=== PATIENT | male | born 1960 | race Caucasian/White ===

== ENCOUNTER 2019-03-31 10:29 | Emergency (ER) | payer OTHER, SELFPAY ==
[2019-03-31 10:30] VITALS: BP 158/103; PULSE 80; RESP 16; TEMP 36.9; O2SAT 99; BMI 29.2
--- NOTE | 2019-03-31 12:12 | ED.VIS.GEN ---
History of Present Illness Chief Complaint: Rash Detail of Chief Complaint: Rash face, upper extremity and genitals Informant: Patient Onset: Days Context: Sudden Onset Timing: Continuous Quality: Pruritic rash Location: Previously mentioned Current Severity: Mild Maximum Severity: Moderate Worsened by: Itching Relieved by: Nothing Associated Symptoms: Drainage right and left ear with pain Narrative: Patient is a 58-year-old male presents with pruritic rash preauricular, face bilaterally, upper extremities and genitals. He also complains of ear pain with drainage right and left. He denies headache. He denies visual, ocular or auditory symptoms. He does report orthostatic symptoms. He denies cardiac respiratory symptoms. Nuys black or maroon stool. He denies dysuria, frequency, urgency or hematuria. He denies history of diabetes. He was treated with antibiotic and antifungal when he was seen at [facility]. Prior similar symptoms: Yes Recent Illness/Hospitalization: Yes - Past Medical History (1) No significant past medical history Status: Acute Past Medical History - Allergies and Home Meds Allergies/Adverse Reactions: Allergies No Known Allergies Allergy (Verified 03/31/19 10:32) Primary Care Physician: Care Physician,No Primary [Primary Care Provider] - Surgical History: no surgical history Lives: Alone Smoking Status: Current every day smoker Drugs: None Review of Systems General: Denies: Chills, Fever, Malaise, Sweats Eyes: Denies: Visual changes - bilaterally, Blurred Vision - bilaterally ENT: Reports: Bilateral ear pain. Denies: Rhinorrhea, Sore throat Cardiovascular: Denies: Chest pain, Palpitations Respiratory: Denies: Dyspnea, Cough, Dyspnea on exertion Gastrointestinal: Denies: Abdominal pain, Nausea, Vomiting, Diarrhea, Melena, Hematochezia Musculoskeletal: Denies: Myalgias, Arthralgias, Neck pain, Back pain, Swelling, Extremity Pain, -, - Skin: Reports: Rash Neurological: Denies: Headache, Weakness, Parasthesia Endocrine: Denies: Polyuria, Polydipsia Hematologic: Denies: Easy bruising, Easy bleeding Physical Exam Vital Signs/Narrative: Vital Signs Temp Pulse Resp BP Pulse Ox 03/31/19 10:30 98.4 F 80 16 158/103 H 99 Inital Vital Signs reviewed: Yes General: Well nourished, Well developed, No Acute Distress Head: Normocephalic, Atraumatic Eyes: Perrl, EOMI. Negative for: Pale conjunctiva, Scleral icterus ENT: Moist mucous membranes, No rhinorrhea, TM's clear, - - Is pain with pushing on the right and left tragus and pain with pulling on the right and left auricle. There is narrowing of the external auditory canal with yellow drainage noted. Neck: Supple, Nontender, No lymphadenopathy, No JVD Cardiovascular: Regular rate, Regular rhythm, No murmurs, Normal S1, Normal S2 Respiratory: No distress, CTA bilaterally, Chest nontender Rectal: Deferred Extremities: Nontender, No edema Skin: Normal color, Rash - And has eczema/dry skin face and upper extremity. Rash on genitals is a tinea infection. Since patient has recurrent tinea infection will obtain BG T to assess for diabetes. Neurological: Alert, Oriented x3, Cranial nerves II-XII grossly intact, Normal Strength, Normal Sensation, Normal Gait Psychological: Normal affect, Normal Mood Diagnostic/Tx/Re-eval - Medical Decision Making T was obtained to assess for diabetes. We will treat otitis externa with wick and antibiotic drops. Will prescribe Diflucan for his tinea infection. Because he complains of lightheadedness orthostatic vital signs were ordered. Wick was placed right and left. Drops were instilled. He was treated with Diflucan for his tinea infection. ED Disposition - Plan for ED Patient: Disposition: Home or Assisted Living Diagnosis: Bilateral otitis externa, Dry skin dermatitis, Tinea cruris Instructions: EXTERNAL EAR INFECTION (Adult), TINEA CRURIS, Jock Itch Prescriptions: Fluconazole [Diflucan] 150 mg PO DAILY #3 tab Prescription Printed Referrals: Care Physician,No Primary [Primary Care Provider] - Doctor,Your [STAFF PHYSICIAN] - 5-7 Days Additional Instructions: Apply Eucerin lotion to rash upper extremities and face 2-3 times a day. Instill 4 drops of the ear medication every 6 hours for the next 5 days. If the wick does not fall out see your primary care provider to have them removed.
[2019-03-31 12:31] VITALS: BP 116/82; BP 119/82; BP 122/83; PULSE 66; PULSE 69; PULSE 74; RESP 12; O2SAT 100
[2019-03-31 12:40] LABS: Bedside Glucose 98 mg/dL (70-110)
[2019-03-31 15:21] VITALS: BP 117/90; PULSE 68; RESP 16; O2SAT 97
[2019-03-31] MEDS: Neomycin Sulfate/Polymyxin/Hc Susp 10 ML Bottle 4 DRP OTIC (15:40)
[2019-03-31] MEDS: Fluconazole 100 MG Tablet 200 MG PO (15:41)
== END 2019-03-31 15:45 | disposition home or self-care (01) ==
PROVIDERS: Emergency Provider Emergency Medicine
DX: L85.3 Xerosis cutis (principal); B35.6 Tinea cruris; H60.93 Unspecified otitis externa, bilateral; F17.200 Nicotine dependence, unspecified, uncomplicated
CPT/HCPCS: 82962; 99283